=== PATIENT | male | born 1940 | race Caucasian/White ===

== ENCOUNTER → 2023-10-23 13:56 | Outpatient (REF) | payer MEDICARE, BC, SELFPAY | LOC: HWRAD 13:56 | PROVIDERS: ATTENDING PHYSICIAN Specialist; FAMILY PHYSICIAN Family Medicine | DX: G45.9 Transient cerebral ischemic attack, unspecified (principal) | CPT/HCPCS: 70450; 93880 ==

== ENCOUNTER → 2023-10-25 11:12 | Outpatient (REF) | payer MEDICARE, BC, SELFPAY ==
--- NOTE | 2023-10-25 14:59 | EEG.RPT ---
Electroencephalogram Report
Recording
Date of EE10/25/23
Type of EEG: Routine
Length of EEG recordin mins
Done with Video Recording: Yes
Patient Status: Outpatient
Recording Conditions: Awake and Drowsy
Hyperventilation Performed: No
Photic Stimulation Performed: Yes
Report
METHODS
A 21 channel digitized electroencephalogram was performed at [facility]. The 10/20 international system of electrode placement was used. In addition to EEG, the patient was monitored for EKG. The duration of the recording was 25 minutes.
BACKGROUND
During the awake state, with the eyes closed, the background was diffusely slow to ~5Hz frequencies with at times superimposed diffuse excess beta activity.
HYPERVENTILATION
Hyperventilation was not performed.
PHOTIC STIMULATION
Photic stimulation using a step-gonzalez increase in photic frequency varying from 1-31 Hertz resulted in no driving responses but no appearance of abnormal activity.
CLINICAL EVENTS
None
INTERPRETATION AND CLINICAL CORRELATION
This EEG is abnormal due to the presence of theta range slowing and superimposed diffuse excess beta activity. The study is consistent with moderate diffuse cerebral dysfunction, nonspecific in etiology. Diffuse excess beta activity can be seen
due to drug effect or anxiety. No clear seizures were noted.
== END ==
LOC: EEG 11:12
PROVIDERS: ATTENDING PHYSICIAN Specialist; FAMILY PHYSICIAN Family Medicine
DX: R41.89 Other symptoms and signs involving cognitive functions and awareness (principal)
CPT/HCPCS: 95816

== ENCOUNTER 2023-10-26 02:56 | Emergency (ER) | payer MEDICARE, BC, SELFPAY ==
[2023-10-26 02:58] VITALS: BP 180/76
[2023-10-26 03:28] VITALS: BMI 25.5
--- NOTE | 2023-10-26 03:28 | ED.GENMED ---
History of Present Illness
General
Chief Complaint: Head Injury
Source: patient
Exam Limitations: none
Time Seen by Provider: 10/26/23 03:27
Travel History
Have you had any contact with someone who has COVID-19?: No
Do you have any symptoms of coronavirus? Fever > 100 degrees, chills, cough, shortness of breath, sore throat, loss of taste or smell, muscle aches, or headache?: No
History of Present Illness
History of Present Illness:
See MDM
Past History
Past History
ED Past Medical History: CVA (in 2007, 2013), HTN, Hypercholesterolemia and Other (gout, COVID-19 2020, PFO, vascular dementia)
ED Past Surgical History: Appendectomy and Cardiac (pacemaker 2019)
Social History
Tobacco: Former smoker
Alcohol: Occasional
Drug: None
Personal:
Living: with family
Employment: Retired
Family History
Family History: Diabetes
Phy Exam
Physical Exam
Physical Exam:
See MDM
Course
Orders/Labs/Results
Orders:
Orders
10/26/23 03:[address] [CT Head W/o Iv Contrast] Urgent
Comment:
Reason For Exam: fell, struck right upper head, on Eliquis
Vital Signs
Initial and Last Documented VS:
Initial Vital Signs
Temp Pulse Resp BP Pulse Ox
98.2 F 60 16 180/76 95
10/26/23 02:58 10/26/23 02:58 10/26/23 02:58 10/26/23 02:58 10/26/23 02:58
Last Documented Vital Signs
Temp Pulse Resp BP Pulse Ox
98.2 F 60 16 180/76 95
10/26/23 02:58 10/26/23 02:58 10/26/23 02:58 10/26/23 02:58 10/26/23 02:58
MDM/Problems Addressed
Differential Diagnosis Includes:
HPI and MDM Narrative:
83-year-old male presenting with a fall out of bed. He hit his head on the floor. He is on Eliquis. Patiently is of jaw pain but denies any trouble with closing his mouth.
Patient is on a blood thinner. On evaluation, he has a large right frontal forehead hematoma. Given age and complaint, will obtain CT head on my exam, there is no bony tenderness to palpation of jaw and no malalignment. He has no cervical spine
tenderness either
Physical exam
General: Well appearing and non-toxic
HEENT: protecting airway. Large hematoma to right frontal forehead
Neck: No spinal tenderness, supple
CV: No evidence of cyanosis
Resp: No accessory muscle use
Abd: Non-distended
Extremities: No deformities
Neuro: alert
Psych: Normal affect
Skin: Intact
Problems Addressed including Acute and Chronic Conditions affecting care:
1. Head injury
Acuity: acute
Prognosis: stable
Details: Given age and being on a blood thinner, will obtain CT head
Updates
CT head negative. Discussed return precautions
Differential Diagnosis (but not limited to): Hematoma, concussion, intracranial hemorrhage, fracture
Testing considered: CT cervical spine but no tenderness is palpated
Drug therapy (if applicable): OTC meds, please see d/c instruction regarding Rx drugs
Amount and/or Complexity of Data Reviewed
Clinical info obtained from: Patient
External data reviewed: N/A
Labs I independently reviewed (but not limited to): N/A
Radiology: The CT scan was personally and independently reviewed. In addition, official CT report reviewed.
Pulse Ox: not hypoxic
EKG independently reviewed: N/A
Coat Finisher: N/A
Critical Care: N/A
Risk of Complication:
Social Determinants of health: Good social support
Discussed with other providers: N/A
Escalation of Care includes Admit/Obs: After being observed in the Emergency Department, pt stable for discharge.
Occasional wrong word or 'sound a like' substitutions may have occurred due to the inherent limitations of voice recognition software. Read the chart carefully and recognize, using context, where substitutions have occurred.
*Critical Care Note
Total Time (30-74mins, 75-104mins- exclusive of procedures): Not Applicable
ED Attending Note
-
Portions of this chart may have been created with voice recognition software.� Occasional wrong word or��sound alike� substitutions may have occurred due to the inherent limitations of voice recognition software.
Discharge Plan
Departure
Patient Disposition: Home (Routine Discharge)
Date of Disposition: 10/26/23
Time of Disposition: 04:12
Patient with high blood pressure during this ER visit?: Yes
Discharge Problem:
Head injury
Instructions: Head Injury in Adults (DC), BLOOD PRESSURE
Prescriptions:
No Action
midodrine 5 mg Tablet
5 mg PO BID@0700,1300 Qty: 180 0RF
nifedipine 30 mg Tablet Extended Release
30 mg PO DAILY@1800 Qty: 30 0RF
atorvastatin 20 MG tablet
20 mg PO HS Qty: 30 0RF
ipratropium-albuterol 0.5 mg-3 mg(2.5 mg base)/3 mL Solution For Nebulization
3 ml INHALATION QID PRN (Reason: SOB) Qty: 120 0RF
donepezil 5 MG tablet
10 mg PO DAILY Qty: 30 0RF
cyanocobalamin (vitamin B-12) 1,000 MCG tablet
1,000 mcg PO DAILY Qty: 30 0RF
allopurinol 100 MG tablet
100 mg PO DAILY Qty: 30 0RF
aspirin 81 MG tablet,delayed release (DR/EC)
81 mg PO DAILY Qty: 30 0RF
carboxymethylcellulose sodium Drops
1 drp OPHTHALMIC (EYE) BID Qty: 12 0RF
melatonin 5 mg Tablet
10 mg PO HS Qty: 60 0RF
multivitamin with folic acid [Tab-A-Eddie] 1 TABLET tablet
1 tab PO DAILY Qty: 30 0RF
warfarin [Jantoven] 7.5 mg Tablet
3.75 mg PO QPM Qty: 15 0RF
Referrals:
Roscoe Hess MD [Family Provider] -
Activity Restrictions/Additional Instructions:
Please return for any worsening symptoms.
You may return at any time if you have further concerns.
Please follow up with your doctor at the first available appointment, preferably this week.
Thank you for choosing [facility].
Interventions
Interventions:
*Risk Screen - Suicide Last Done: 10/26/23 02:58
*General Assessment Last Done: 10/26/23 03:28
*Neglect/Abuse Screening Last Done: 10/26/23 02:58
ED- Fall Risk Assessment Last Done: 10/26/23 03:28
*ED COVID-19 Vaccine History Last Done: 10/26/23 02:58
ED- Neurological Assessment Last Done: 10/26/23 03:28
ED-Skin Assessment Last Done: 10/26/23 03:28
Discharge Date and Time
Print Language: EQUATORIAL GUINEAN
[2023-10-26] MEDS: TYLENOL 1000 MG PO (04:27)
== END 2023-10-26 05:13 | disposition home or self-care (01) ==
LOC: EMR 02:56
PROVIDERS: EMERGENCY PHYSICIAN Student in an Organized Health Care Education/Training Program; FAMILY PHYSICIAN Family Medicine
DX: S09.90XA Unspecified injury of head, initial encounter (principal); S00.83XA Contusion of other part of head, initial encounter; R68.84 Jaw pain; W06.XXXA Fall from bed, initial encounter; I10 Essential (primary) hypertension; E78.00 Pure hypercholesterolemia, unspecified; F03.90 Unspecified dementia, unspecified severity, without behavioral disturbance, psychotic disturbance, mood disturbance, and anxiety; M10.9 Gout, unspecified; Q21.12 Patent foramen ovale; Z79.01 Long term (current) use of anticoagulants; Z95.0 Presence of cardiac pacemaker; Z86.16 Personal history of COVID-19; Z86.73 Personal history of transient ischemic attack (TIA), and cerebral infarction without residual deficits; Z87.891 Personal history of nicotine dependence
CPT/HCPCS: 99284; 70450